=== PATIENT | female | born 1955 | race Caucasian/White ===

== ENCOUNTER 2025-02-05 18:54 | Emergency (ER) | payer MEDICARE, SELFPAY ==
[2025-02-05 18:57] VITALS: BP 154/86
[2025-02-05 19:19] LABS: % Basophils 0.8 % (0-2); % Eosinophils 1.7 % (0-6); % Immature Granulocytes 0.3 % (0-0.5); % Lymphocytes 40.1 % (20.5-51.1); % Neutrophils 50.1 % (42.2-75.2); Absolute Basophils 0.1 10^3/uL (0-0.2); Absolute Eosinophils 0.1 10^3/uL (0-0.7); Absolute Lymphocytes 2.9 10^3/uL (1.2-3.4); Absolute Monocytes 0.5 10^3/uL (0.1-0.6); Absolute Neutrophils 3.6 10^3/uL (1.4-6.5); Hematocrit 42.1 % (37.0-47.0); Hemoglobin 14.2 g/dL (12.0-16.0); Mean Corp Hgb Conc. 33.7 g/dL (33.0-37.0); Mean Corpuscular Hgb 28.8 pg (27.0-31.0); Mean Corpuscular Volume 85.4 fL (81.0-99.0); Mean Platelet Volume 9.6 fL (7.4-10.4); Nucleated Red Blood Cells % 0 %; Platelet Count 197 10^3/uL (130-400); Red Blood Cell Count 4.93 10^6/uL (4.20-5.40); Red Cell Dist. Width 13.5 % (11.5-14.5); White Blood Cell Count 7.3 10^3/uL (4.8-10.8)
[2025-02-05 19:33] LABS: ALT (SGPT) 24 U/L (0-35); AST (SGOT) 25 U/L (14-36); Albumin 4.2 g/dl (3.5-5.0); Alkaline Phosphatase 55 U/L (38-126); Blood Urea Nitrogen 10 mg/dl (7-17); Calcium 9.4 mg/dl (8.4-10.2); Carbon Dioxide 25 mmol/L (22-30); Chloride 104 mmol/L (98-107); Glucose 119 mg/dl (70-99); Magnesium 2.2 mg/dl (1.6-2.3); Potassium 3.3 mmol/L (3.5-5.1); Sodium 138 mmol/L (135-145); Total Bilirubin 0.5 mg/dl (0.2-1.3); Total Protein 6.9 g/dl (6.3-8.2); eGFR > 60.00
[2025-02-05 19:44] LABS: Troponin I < 0.012 ng/ml
[2025-02-05 20:06] LABS: TSH Reflex To Free T4 4.67 uIU/ml (0.47-4.68)
--- NOTE | 2025-02-05 20:48 | ED.GENMED ---
History of Present Illness
General
Chief Complaint: Dizziness
Source: patient
Time Seen by Provider: 02/05/25 20:19
History of Present Illness
History of Present Illness:
69-year-old female presents after episode of lightheadedness that happened at home. She was standing making dinner and she felt something regurgitate and almost felt like it got stuck. She then felt lightheaded and her heart started to race and
she let her self down to the ground. She did not pass out. She would not describe any chest pain. She states currently she feels just tired but no chest pain or palpitations. She has been feeling tired over the past several days. No other
complaints at this time
Phy Exam
Physical Exam
Physical Exam:
General: Well-appearing female no acute respiratory distress
HEENT: Normocephalic atraumatic
Heart: Regular rate and rhythm no murmurs
Lungs: Clear no wheeze
Abdomen is soft nontender nondistended no guarding or rebound normal bowel sounds
Extremities: No cyanosis or edema
Skin: Warm no rash
Course
Orders/Labs/Results
Orders:
Orders
02/05/25 18:55
ECG [Electrocardiogram (*1)] Urgent
Reason for Study: Bradycardia / Tachycardia
EKG- Treatment ONCE
02/05/25 19:11
Complete Blood Count/With Diff Urgent
Comprehensive Metabolic Panel Urgent
Magnesium Urgent
TSH Reflex To Free T4 Urgent
Troponin I Urgent
02/05/25 20:47
Cardiac Monitoring- Treatment ONCE
02/05/25 21:00
Troponin I Urgent
Abnormal Lab Results
02/05/25
19:11
Potassium 3.3 L mmol/L
(3.5-5.1)
Glucose 119 H mg/dl
(70-99)
02/05/25 19:11
02/05/25 19:11
Vital Signs
Initial and Last Documented VS:
Initial Vital Signs
Temp Pulse Resp BP Pulse Ox
98.2 F 96 20 154/86 98
02/05/25 18:57 02/05/25 18:57 02/05/25 18:57 02/05/25 18:57 02/05/25 18:57
Last Documented Vital Signs
Temp Pulse Resp BP Pulse Ox
98.2 F 71 18 154/86 99
02/05/25 18:57 02/05/25 20:56 02/05/25 20:56 02/05/25 18:57 02/05/25 20:56
MDM/Problems Addressed
Differential Diagnosis Includes:
Patient with episode of weakness rapid heart rate lightheadedness after what sounds like reflux. Question vasovagal response versus arrhythmia. There is no chest pain to suggest myocardial infarction or PE or dissection. Will place on monitor
initial labs all within normal limits including troponin and TSH. Will recheck troponin
*Critical Care Note
Total Time (30-74mins, 75-104mins- exclusive of procedures): Not Applicable
Update Note
Update Note:
Initial and repeat troponin undetectable. Patient reexamined no complaints to offer. Feels well. Do not suspect ACS. Suspect more of a vasovagal episode. No indication for admission. Stable for discharge
ED Attending Note
-
Portions of this chart may have been created with voice recognition software.� Occasional wrong word or��sound alike� substitutions may have occurred due to the inherent limitations of voice recognition software.
Discharge Plan
Departure
Patient Disposition: Home (Routine Discharge)
Date of Disposition: 02/05/25
Time of Disposition: 22:15
Patient with high blood pressure during this ER visit?: No
Discharge Problem:
Near syncope
Instructions: Vasovagal Response
Referrals:
UNKNOWN - PT DOES,NOT KNOW [Family Provider] -
Activity Restrictions/Additional Instructions:
Please return here for any worsening symptoms. Follow-up with your doctor otherwise
Interventions
Interventions:
*Risk Screen - Suicide Last Done: 02/05/25 20:53
*General Assessment Last Done: 02/05/25 18:57
*Neglect/Abuse Screening Last Done: 02/05/25 20:53
*ED- Fall Risk Assessment Last Done: 02/05/25 20:53
*ED COVID-19 Vaccine History Last Done: 02/05/25 20:53
ED- Neurological Assessment Last Done: 02/05/25 20:53
ED Swallowing Screen Last Done: 02/05/25 20:57
Discharge Date and Time
Print Language: TURKISH
[2025-02-05 20:53] VITALS: BMI 38.3
[2025-02-05 20:56] VITALS: BP 134/79
[2025-02-05 21:00] VITALS: BP 138/75
[2025-02-05 21:31] LABS: Troponin I < 0.012 ng/ml
[2025-02-05 22:00] VITALS: BP 110/53
== END 2025-02-05 22:40 | disposition home or self-care (01) ==
LOC: EMR 18:54
PROVIDERS: Emergency Medicine; Physician Assistant; EMERGENCY PHYSICIAN Emergency Medicine
DX: R55 Syncope and collapse (principal)
CPT/HCPCS: 99284; 80053; 83735; 84443; 84484; 85025; 93005

== ENCOUNTER → 2025-04-25 10:40 | Outpatient (REF) | payer MEDICARE, SELFPAY | LOC: WDC 10:40 | PROVIDERS: ATTENDING PHYSICIAN Surgery | DX: D05.12 Intraductal carcinoma in situ of left breast (principal) | CPT/HCPCS: 19281; A4648 ==

== ENCOUNTER → 2025-04-26 07:38 | Outpatient (REF) | payer MEDICARE, SELFPAY | LOC: WDC 07:38 | PROVIDERS: ATTENDING PHYSICIAN Surgery | DX: D05.12 Intraductal carcinoma in situ of left breast (principal) | CPT/HCPCS: 88305; 88307; 76098 ==